=== PATIENT | male | born 1960 | race Caucasian/White ===

== ENCOUNTER 2021-02-18 13:29 | Inpatient (IN) | payer MEDICARE, SELFPAY ==
[2021-02-18] VITALS (8 sets, daily range): BP systolic 131–157; BP diastolic 79–95; PULSE 66–95; RESP 14–21; TEMP 36.9–37.2; O2SAT 95–100; BMI 27.3; BMI 24.0
--- NOTE | ~2021-02-18 | CT_ITS ---
EXAMINATION: CT brain wo con DATE: 02/18/2021 15:30 INDICATION: Seizure. Confusion. TECHNIQUE: Computed tomography (CT) of the head was performed without intravenous contrast. The mA wa s adjusted according to patient size. Iterative reconstruction technique was employed. Exam dose: 60 5.33 mGy-cm total exam DLP. COMPARISON: None FINDINGS: Examination is limited by motion. The patient was post-ictal and unable to hold still accor ding to the technologist. No intracranial mass lesion or hemorrhage, midline shift or mass effect eff ect is evident. There is focal chronic asymmetric encephalomalacia in the left temporal area subjacent to a healed de pressed fracture. There is a chronic small blowout fracture of the medial wall of the right orbit. There is nonspecific diminished attenuation cerebral white matter, likely due to chronic small vessel ischemic change. The mastoid air cells and included paranasal sinuses are unremarkable. IMPRESSION: No acute intracranial finding or significant change since 06/05/2013 Reviewed, dictated and finalized at [facility]. Reviewed, dictated and finalized at location A.
--- NOTE | ~2021-02-18 | MR_ITS ---
EXAMINATION: MR brain/brain stem wo con DATE: 02/20/2021 08:33 INDICATION: Altered mental status TECHNIQUE: Magnetic resonance imaging (MRI) of the brain and brainstem was performed without intraven ous contrast. Sequences included sagittal and axial T1-weighted SE, axial diffusion-weighted FS EPI A SSET, axial T2*-weighted GRE, axial T2-weighted FLAIR Propeller, and axial T2-weighted Propeller. Eufemia arent diffusion coefficient (ADC) maps were created. COMPARISON: 06/05/2013 FINDINGS: There are no areas of restricted diffusion to suggest acute infarction. There is no acute h emorrhage seen on the T2*, a hemosiderin sensitive sequence. The ventricles are normal in size. There are no extra-axial collections. A stable small area of encephalomalacia is noted in the left tempora l lobe adjacent to an old skull fracture. Flow voids are seen in the cerebral arteries on the T2-weig hted sequences consistent with their expected patency. Visualized orbits and soft tissues are unremar kable. IMPRESSION: 1. No acute findings. Reviewed, dictated and finalized at location A. IMPRESSION: 1. No acute findings.
--- NOTE | ~2021-02-18 | CT_ITS ---
EXAMINATION: CT chest high resolution wo co DATE: 02/20/2021 07:46 INDICATION: COPD. Patchy bilateral opacities reported on 02/18/2021 chest radiograph TECHNIQUE: Computed tomography (CT) of the chest was performed without intravenous contrast. Automate d exposure control and iterative reconstruction technique were employed. Exam dose: 217.89 mGy-cm to eve exam DLP. COMPARISON: 02/18/2021 portable AP chest / two-view chest FINDINGS: There is cardiomegaly. The ascending aorta measures up to 4.2 cm diameter, the mid aortic arch 3 cm diameter, the descending thoracic aorta 2.7 cm diameter. No pericardial or pleural effusion. Approximately 9 mm hypoattenuating lesion of the lower pole of the left lobe of the thyroid gland. No hilar or mediastinal mass lesion or lymphadenopathy. Minimal focal infiltrate, atelectasis or scarring in the medial right infrahilar area, right lower lo be The lungs are otherwise clear of infiltrate or consolidation. Mild to moderate likely chronic anterior wedge compression fracture deformity of T12, IMPRESSION: Minimal focal infiltrate, atelectasis or fibrotic change in the medial right infrahilar area, right lower lobe; otherwise no active pulmonary disease Cardiomegaly T12 compression fracture deformity Reviewed, dictated and finalized at [facility]. Reviewed, dictated and finalized at location A. IMPRESSION: Minimal focal infiltrate, atelectasis or fibrotic change in the me dial right infrahilar area, right lower lobe; otherwise no active pulmonary dis ease Cardiomegaly T12 compression fracture deformity
--- NOTE | ~2021-02-18 | XR_ITS ---
EXAMINATION: XR chest 1V portable INDICATION: Altered mental status TECHNIQUE: Portable AP chest at 1507 hours COMPARISON: 09/25/2012 FINDINGS: Cardiomegaly is noted. There are patchy bilateral opacities. No pleural effusion or pneumot horax is identified. IMPRESSION: 1. Cardiomegaly. 2. Patchy bilateral opacities which could reflect pneumonia/or pulmonary edema. Reviewed, dictated and finalized at location A.
--- NOTE | ~2021-02-18 | XR_ITS ---
EXAMINATION: XR chest 2V 02/21/2021 08:36 INDICATION: Pneumonia. Poor historian. PROCEDURE: PA and lateral views of the chest COMPARISON: Comparison to multiple prior studies sequentially, with oldest reviewed study dated 06/23. FINDINGS: The lungs are clear. The cardiomediastinal silhouette is within normal limits. There are no pleural effusions. There is no pneumothorax suspected. There is posterior basilar atelectasis. IMPRESSION: 1: Posterior basilar atelectasis on lateral view.. Reviewed, dictated and finalized at location A.
--- NOTE | 2021-02-18 14:50 | ECG_ITS ---
Measurements Intervals [place] Rate: 81 P: 52 [place]: 132 QRS: -34 QRSD: 101 T: 11 QT: 386 QTc: 450 Interpretive Statements SINUS RHYTHM POSSIBLE LEFT ATRIAL ENLARGEMENT LEFT AXIS DEVIATION DELAYED PRECORDIAL R/S TRANSITION BORDERLINE T WAVE ABNORMALITY- INFERIOR LEADS BASELINE ARTIFACT- I, II, III, AVR, AVL, BORDERLINE ECG Electronically Signed On 02-18-2021 15:54:32 CDT by Den Valdez D.O.
[2021-02-18] MEDS: SODIUM CHLORIDE 0.9% IV 1,000 ML 999 ML IV CONT (14:58)
--- NOTE | 2021-02-18 14:58 | ED.GENADULT ---
HPI - General Adult General Chief complaint: Seizure Stated complaint: SEIZURE ALL DAY Time Seen by Provider: 02/18/21 14:36 Source: RN notes reviewed Mode of arrival: ambulatory Limitations: altered mental status History of Present Illness HPI narrative: Patient 60 years old white male, history of seizure, lives alone, called his neighbor this morning at 7 AM who noticed that the patient is confused and talking nonsense, she knew right away that he had a seizure because he is ready he presents like that. She went see him, and he was so confused, restless, and she is suspected that he will get better in few minutes or 1 hour as usual. Then she left, then got another phone call from him at 1 PM today and noticed again that he is confused talking nonsense, went see him found his pills all over the countertop, still confused make no sense and decided to bring him to the emergency room. Currently patient is awake, disoriented x4. Patient is able to follow commands but unable to express his symptoms patient denies any tingling, numbness or focal weakness. History of seizure on Keppra, patient is shaking his head that he takes the medication all the time. He denies any fever, chills, nausea, vomiting, headache, chest pain, shortness of breath or abdominal pain. Related Data Allergies Allergy/AdvReac Type Severity Reaction Status Date / Time No Known Allergies Allergy Verified 02/18/21 13:59 Review of Systems Review of Systems: ROS unobtainable: Yes unobtainable due to medical condition and unobtainable due to mental status PMFSH Family History Family History Sibling Cerebrovascular accident, Onset Age: 30 Family history of kidney disease Family history of diabetes mellitus in first degree relative Mother Cerebrovascular accident, Onset Age: 50 Social History Social History Smoking status: Never smoker Alcohol intake: current Exam Narrative: General appearance: Well-developed, well-nourished Skin: Normal color Head: Normocephalic, nontraumatic Eyes: Clear conjunctiva ENT: Oropharynx normal, ears normal, nose normal Neck: Supple, nontender Chest and respiratory: Airway patent, no respiratory distress, no accessory muscle use Heart: Regular rate/rhythm Abdomen: Soft, nontender, no organomegaly, quiet bowel sounds Vascular: Normal peripheral pulses, normal capillary refill. Musculoskeletal: Normal range of motion, nontender back Neurologic: Alert, confused and disoriented x4 Course Course Emergency Course: Stable Vital Signs Vital signs: Vital Signs Temperature 37.2 C 02/18/21 13:33 Pulse Rate 95 02/18/21 13:33 Respiratory Rate 18 02/18/21 13:33 Blood Pressure 146/88 H 02/18/21 13:33 Pulse Oximetry 96 02/18/21 13:33 Temperature 37.2 C 02/18/21 13:33 Pulse Rate 86 02/18/21 15:53 Respiratory Rate 21 H 02/18/21 15:53 Blood Pressure 151/93 H 02/18/21 15:53 Pulse Oximetry 95 02/18/21 15:53 Medical Decision Making MDM Narrative Medical decision making narrative: Possible recurrent seizure, if the patient been confused since 7 AM until now , the underlying cause high likely is not seizure. CT head, labs, chest x-ray, UA, urine drug screen ordered. Further plan to follow Differential Diagnosis Differential Diagnosis: Seizure, CVA, drug abuse, major depression Vital Signs Vital Signs: Vital Signs Temperature 37.2 C 02/18/21 13:33 Pulse Rate 95 02/18/21 13:33 Respiratory Rate 18 02/18/21 13:33 Blood Pressure 146/88 H 02/18/21 13:33 Pulse Oximetry 96 02/18/21 13:33 Temperatur
[2021-02-18 15:03] LABS: Basophils Percent Auto 0.4 % (0.2-1.2); Hematocrit 40.5 % (42.0-52.0); Hemoglobin 14.3 g/dL (14.0-18.0); Immature Granulocyte Absolute 0.02 K/mm3 (0.00-0.031); Immature Granulocyte Percent A 0.4 % (0-0.5); Lymphocytes Absolute Auto 0.66 K/mm3 (0.9-3.2); Lymphocytes Percent Auto 13.5 % (18.3-44.2); Mean Corpuscular HGB Conc 35.3 g/dl (32-36); Mean Corpuscular Hemoglobin 35.3 pg (26-34); Mean Platelet Volume 10.3 fl (7.4-10.4); Monocytes Absolute Auto 0.5 K/mm3 (0.1-0.6); Neutrophils Absolute Auto 3.7 K/mm3 (1.3-6.7); Neutrophils Percent Auto 75.7 % (45.5-73.1); Platelet Count Result 194 k/mm3 (150-375); Red Blood Count 4.05 M/mm3 (4.6-6.20); White Blood Count 4.9 K/mm3 (4.5-10.0)
[2021-02-18 15:13] LABS: Alanine Aminotransferase 25 U/L (4-50); Albumin Level 4.2 g/dL (3.5-5.1); Alkaline Phosphatase 70 U/L (38-126); Anion Gap 10 mmol/L (8-16); Aspartate Amino Transferase 51 U/L (17-59); Bilirubin,Total 0.7 mg/dL (0.2-1.3); Blood Urea Nitrogen 11 mg/dL (9-20); Calcium 9.3 mg/dL (8.4-10.2); Carbon Dioxide 22 mmol/L (22-30); Chloride 97 mmol/L (98-107); Estimated CRCL calculation 79 ml/min; Estimated Glomerular Filt Rate > 60; Glucose 111 mg/dL (65-110); Potassium 3.5 mmol/L (3.4-5.0); Sodium 129 mmol/L (137-145)
[2021-02-18 15:18] LABS: Ethanol < 10 mg/dL (<10)
[2021-02-18 15:20] LABS: Add Urine Microscopic? YES; Amorphous Sediment Urine Few; Appearance Urine Clear (Clear); Bilirubin Urine Negative (Negative); Blood Urine Negative (Negative); Color Urine Yellow (Yellow); Glucose Urine UA Negative (Negative); Ketones Urine 1+ mg/dL (Negative); Leukocyte Esterase Ur Negative LEU/UL (Negative); Mucus Urine Few /lpf; Nitrate Urine Negative (Negative); Protein Urine 1+ mg/dL (Negative); Specific Grav Ur 1.029 (1.001-1.035); WBC Urine 0-3 /hpf
[2021-02-18 15:41] LABS: Amphetamine Screen Urine Negative (Negative); Barbiturate Screen Urine Negative (Negative); Benzodiazepines Screen Urine Negative (Negative); Cannabinoid Screen Urine Negative (Negative); Cocaine Screen Urine Negative (Negative); Methadone Screen Urine Negative (Negative); Opiate Screen Urine Negative (Negative); Phencyclidine Screen Urine Negative (Negative)
[2021-02-18] MEDS: ACETAMINOPHEN 500 MG TABLET 1000 MG PO (15:52)
[2021-02-18] MEDS: ONDANSETRON INJ 4 MG/2 ML VIAL IV PUSH (16:00)
--- NOTE | 2021-02-18 19:11 | PC.NURSE ---
Report received and care of pt assumed at this time.
--- NOTE | 2021-02-18 19:29 | PC.NURSE ---
Attempted to call report to floor. RN taking report. Will call back.
--- NOTE | 2021-02-18 20:13 | PM.IMHP ---
H&P: HPI History of Present Illness Date/Time: 02/18/21 20:13 Chief Complaint: ALTERED MENTAL STATUS Narrative: THIS IS A 60-YEAR-OLD MALE WITH PAST MEDICAL HISTORY SIGNIFICANT FOR EPILEPSY. PATIENT WAS BROUGHT TODAY BY HIS NEIGHBOR TO THE EMERGENCY ROOM DUE TO ALTERED MENTAL STATUS PATIENT HAS BEEN VERY CONFUSED AND DISORIENTED NOT MAKING SENSE NONSENSICAL NON LOGICAL ANSWERS AND BEHAVIOR ACCORDING TO NAVAL OR PATIENT HAS HAD THIS IN THE PAST AFTER HAVING A SEIZURE AND WAS ATTRIBUTED IN THESE BEHAVIOR TO THE SEIZURE HOWEVER AFTER FEW HOURS PASSED BY AND PATIENT WAS STILL ACTING THE SAME DECIDED TO BRING HIM TO THE EMERGENCY ROOM. UPON ARRIVAL TO THE EMERGENCY ROOM PATIENT WAS DISORIENTED. PRELIMINARY WORKUP WAS SIGNIFICANT FOR CHEST X-RAY WITH DIFFUSE INFILTRATES, A CT OF THE HEAD DID NOT SHOW ANY ACUTE ABNORMALITIES CHEMISTRY PANEL WAS SIGNIFICANT FOR A SODIUM OF 127. PATIENT HAS BEEN SWABBED FOR COVID 19 AND HAS BEEN PLACED IN OBSERVATION. Review of Systems Review of Systems: ROS unobtainable: Yes unobtainable due to medical condition and unobtainable due to mental status (DISORIENTED NONSENSICAL ANSWERS) [facility] Family History Family History Sibling Cerebrovascular accident, Onset Age: 30 Family history of kidney disease Family history of diabetes mellitus in first degree relative Mother Cerebrovascular accident, Onset Age: 50 Social History Social History Smoking packs per day: 1 Smoking cigarettes per day: 20.0 Years smoked: 40 Smoking pack-years: 40.00 Smoking status: Current every day smoker Tobacco type: cigarettes Alcohol intake: current Drinks per week: 15 Substance use: never Spiritual care concerns: No Meds Home Medications and Allergies Home Medications Medication Instructions Recorded Confirmed Type citalopram 20 mg tablet See Rx Instructions .ROUTE 12/17/20 Rx .COMPLEX #90 tablet lisinopril 10 mg tablet See Rx Instructions .ROUTE 12/17/20 Rx .COMPLEX #90 tablet levetiracetam 1,000 mg tablet See Rx Instructions .ROUTE 01/31/21 Rx .COMPLEX #360 tablet Allergies Allergy/AdvReac Type Severity Reaction Status Date / Time No Known Allergies Allergy Verified 02/18/21 13:59 Vital Signs Vital Signs - 24 hr 02/18/21 13:33 02/18/21 13:50 02/18/21 13:56 Temperature 99.0 F Pulse Rate 95 92 Respiratory Rate 18 Blood Pressure 146/88 H Pulse Oximetry 96 99 02/18/21 15:01 02/18/21 15:53 02/18/21 17:07 Temperature Pulse Rate 84 86 79 Respiratory Rate 20 21 H 14 Blood Pressure 157/95 H 151/93 H 133/79 Pulse Oximetry 99 95 97 02/18/21 18:14 Temperature Pulse Rate 75 Respiratory Rate 20 Blood Pressure 138/92 H Pulse Oximetry 100 Exam Narrative: PATIENT IS LAYING IN BED Const: General: cooperative, healthy appearing, comfortable, no acute distress, well developed, alert, awake and other (WELL-APPEARING) Nutritional Appearance: average body habitus Orientation/consciousness: confusion HENMT: Head: normal to inspection, normocephalic and atraumatic Ears: hearing grossly normal bilaterally General nose exam: Normal external nose present Face and sinus: normal facial exam Mouth: Yes Normal oral and palatal mucosa present Teeth and gingiva: dentition normal Eyes: General: appearance normal, both eyes and all related structures Alignment and Position: alignment normal Sclera: sclerae normal Pupils: Equal, round and reactive pupils present EOM: EOMs intact bilaterally Neck: Neck: normal visual inspection, full ROM, no lymphadenopathy, supple and no JVD Thyroid: thyroid normal Lymphatic: no lymphadenopathy noted Resp: Effort & Inspection: normal respiratory effort and able to speak in complete sentences Auscultation: clear to auscultation bilaterally, no crackles, no rales, no rhonchi and no wheezes Cardio: Jugular venous disten
--- NOTE | 2021-02-18 20:15 | ADMGEN ---
This patient, Ed Garland, was admitted to [facility] Surg Room 333-01. Patient/family oriented to hospital policies and general routines including ID bracelet, bed and alarms, visiting hours, pain management, procedures, bathroom and other care routines, personal items, smoking policy, room service/diet, and visiting hours. Information on how to activate the Rapid Response Team has been discussed. Patient/Family are encouraged to report perceived risks to care and to ask questions if they do not understand what they are told or what they should do.
[2021-02-18 22:52] LABS: Basophils Percent Auto 0.6 % (0.2-1.2); Eosinophils Percent Auto 0.4 % (0-4.4); Hematocrit 40.6 % (42.0-52.0); Hemoglobin 14.2 g/dL (14.0-18.0); Immature Granulocyte Absolute 0.02 K/mm3 (0.00-0.031); Immature Granulocyte Percent A 0.4 % (0-0.5); Lymphocytes Absolute Auto 1.19 K/mm3 (0.9-3.2); Lymphocytes Percent Auto 23.1 % (18.3-44.2); Mean Corpuscular Hemoglobin 34.9 pg (26-34); Mean Corpuscular Volume 99.8 fl (80-100); Mean Platelet Volume 9.7 fl (7.4-10.4); Monocytes Absolute Auto 0.7 K/mm3 (0.1-0.6); Neutrophils Absolute Auto 3.2 K/mm3 (1.3-6.7); Neutrophils Percent Auto 62.5 % (45.5-73.1); Platelet Count Result 191 k/mm3 (150-375); Red Blood Count 4.07 M/mm3 (4.6-6.20); Red Cell Distribution Width 12.9 % (11.5-14.5); White Blood Count 5.2 K/mm3 (4.5-10.0)
[2021-02-18 23:04] LABS: Anion Gap 6 mmol/L (8-16); Blood Urea Nitrogen 8 mg/dL (9-20); Calcium 8.9 mg/dL (8.4-10.2); Carbon Dioxide 23 mmol/L (22-30); Chloride 102 mmol/L (98-107); Estimated CRCL calculation 99 ml/min; Estimated Glomerular Filt Rate > 60; Glucose 109 mg/dL (65-110); Potassium 3.6 mmol/L (3.4-5.0); Sodium 131 mmol/L (137-145)
[2021-02-19] VITALS (8 sets, daily range): BP systolic 120–140; BP diastolic 73–88; PULSE 57–80; RESP 16–20; TEMP 36.3–37; O2SAT 97–100
[2021-02-19] MEDS: levETIRAcetam 500 MG TABLET 1000 MG BY MOUTH ×3 (02:08→20:22)
[2021-02-19 07:47] LABS: Anion Gap 7 mmol/L (8-16); Blood Urea Nitrogen 6 mg/dL (9-20); Calcium 8.7 mg/dL (8.4-10.2); Carbon Dioxide 23 mmol/L (22-30); Chloride 104 mmol/L (98-107); Estimated CRCL calculation 113 ml/min; Estimated Glomerular Filt Rate > 60; Glucose 98 mg/dL (65-110); Potassium 3.6 mmol/L (3.4-5.0); Sodium 134 mmol/L (137-145)
[2021-02-19] MEDS: CITALOPRAM HYDROBROMIDE 20 MG TABLET BY MOUTH (08:25)
[2021-02-19] MEDS: ASPIRIN 81 MG CHEWABLE TABLET PO (08:25)
[2021-02-19] MEDS: ENOXAPARIN 40 MG/0.4 ML SYRINGE SUB-Q (08:25)
--- NOTE | 2021-02-19 09:34 | PM.IMPN ---
Progress Note: A&P Assessment and Plan (1) Acute alteration in mental status: Code(s): R41.82 - Altered mental status, unspecified Status: Acute Assessment and Plan: ADMIT TO REGULAR MEDICAL FLOOR SUPPORTIVE CARE MRI OF THE BRAIN IN [facility] Q.4 UNCLEAR ETIOLOGY CONTINUE TO MONITOR (2) Pneumonia: Qualifiers: Laterality: bilateral Lung location: lower lobe of lung Pneumonia type: due to unspecified organism Qualified Code(s): J18.9 - Pneumonia, unspecified organism Code(s): J18.9 - Pneumonia, unspecified organism Status: Acute Assessment and Plan: STARTED ON ROCEPHIN AND ZITHROMAX AWAIT CULTURES (3) History of seizure: Code(s): Z87.898 - Personal history of other specified conditions Status: Acute Assessment and Plan: CONTINUE LEVETIRACETAM SEIZURES PRECAUTION (4) Hyponatremia: Code(s): E87.1 - Hypo-osmolality and hyponatremia Status: Acute Assessment and Plan: PATIENT RECEIVED IV FLUIDS 0.9 NORMAL SALINE IMPROVED SODIUM FROM 129-131 CONTINUE TO MONITOR Subjective Date/time seen: 02/19/21 09:34 Patient was seen during the morning rounds today. Mild shortness of breath no chest pain. No abdominal pain, no nausea, no vomiting. Mood stable Review of Systems Review of Systems: ROS unobtainable: Yes unobtainable due to medical condition and unobtainable due to mental status (DISORIENTED NONSENSICAL ANSWERS) Neurologic: Reports confusion Psychiatric: Psychiatric: Reports confusion Exam Narrative: PATIENT IS LAYING IN BED Const: General: cooperative, healthy appearing, comfortable, no acute distress, well developed, alert, awake, confusion and other (WELL-APPEARING) Nutritional Appearance: average body habitus Orientation/consciousness: patient oriented x3 and confusion HENMT: Head: normal to inspection, normocephalic and atraumatic Ears: hearing grossly normal bilaterally General nose exam: Normal external nose present Face and sinus: normal facial exam Mouth: Yes Normal oral and palatal mucosa present Teeth and gingiva: dentition normal Eyes: General: appearance normal, both eyes and all related structures Alignment and Position: alignment normal Sclera: sclerae normal Pupils: Equal, round and reactive pupils present EOM: EOMs intact bilaterally Neck: Neck: normal visual inspection, full ROM, no lymphadenopathy, supple and no JVD Thyroid: thyroid normal Lymphatic: no lymphadenopathy noted Resp: Effort & Inspection: normal respiratory effort and able to speak in complete sentences Auscultation: clear to auscultation bilaterally, no crackles, no rales, no rhonchi and no wheezes Cardio: Jugular venous distension: no JVD Rate: regular rate Rhythm: regular rhythm Heart sounds: S1 normal heart sound present and S2 normal heart sound present GI: Inspection: normal to inspection and non-distended : General: Yes deferred Skin: General skin exam: normal color Rashes: no rashes Wounds: no wounds Neuro: General: patient oriented x3, CN's II-XI intact bilaterally and confusion Cranial nerves: Yes CN's II-XII intact bilaterally and Yes Equal, round and reactive pupils present Cognition (Neuro): abnormal cognition (DISORIENTED) Speech: normal speech Gait exam (Neuro): Normal gait present Motor exam (neuro): 5/5 motor strength present throughout Extrem: General: normal to inspection, full ROM, no joint enlargement and no pedal edema Objective Data Vital Signs Vital Signs: Vital Signs - 24 hr 02/18/21 13:33 02/18/21 13:50 02/18/21 13:56 Temperature 37.2 C Pulse Rate 95 92 Respiratory Rate 18 Blood Pressure 146/88 H Pulse Oximetry 96 99 02/18/21 15:01 02/18/21 15:53 02/18/21 17:07 Temperature Pulse Rate 84 86 79 Respiratory Rate 20 21 H 14 Blood Pressure 157/95 H 151/93 H 133/79 Pulse Oximetry 99 95 97 02/18/21 18:14 02/18/21 20:10 02/19/21 00:00 Temperature 36.9 C 36.9 C
--- NOTE | 2021-02-19 14:02 | WPDNEURCNPN ---
Assessment and Plan Additional Plan acute changes in the mental status with history of seizure disorder in the past, levetiracetam is being continued as such along with seizure precautions and further investigations are being carried out Consult date: 02/19/21 Time Seen: 01:45 HPI: Ed Garland is a 60 year old male admitted to the hospital for complaint of change in the mental status in addition to history of epilepsy in the past. Patient was brought to the hospital by his neighbor with complaints of change in the mental status subsequent to having had a seizure in the past his behavior has been attributed to the seizure and confusion related to the seizure in the emergency room he was reportedly disoriented, x-ray chest revealed diffuse infiltration, CT scan of the head revealed no evidence of bleed, and basic metabolic panel revealed hyponatremia with sodium of 127 he was swabbed for COVID-19 was admitted for observation in the past patient has ongoing history of smoking 1 pack per day with 40 years of smoke no substance abuse and 15 drinks per week, medication particularly included Cytotec prime 20 mg daily along with the levetiracetam 1000 mg twice a day and lisinopril 10 mg daily x-ray chest also documented cardiomegaly with patchy bilateral opacities reflecting pneumonia versus pulmonary edema Review of Systems Review of Systems: All systems reviewed & are unremarkable except as noted in HPI and below PMFSH Family History Family History Sibling Cerebrovascular accident, Onset Age: 30 Family history of kidney disease Family history of diabetes mellitus in first degree relative Mother Cerebrovascular accident, Onset Age: 50 Social History Social History Smoking packs per day: 1 Smoking cigarettes per day: 20.0 Years smoked: 40 Smoking pack-years: 40.00 Smoking status: Current every day smoker Tobacco type: cigarettes Alcohol intake: current Drinks per week: 15 Substance use: never Spiritual care concerns: No Meds Home Medications and Allergies Home Medications Medication Instructions Recorded Confirmed Type citalopram 20 mg tablet See Rx Instructions .ROUTE 12/17/20 02/19/21 Rx .COMPLEX #90 tablet levetiracetam 1,000 mg tablet See Rx Instructions .ROUTE 01/31/21 02/19/21 Rx .COMPLEX #360 tablet lisinopril 10 mg PO DAILY 02/19/21 02/19/21 History Allergies Allergy/AdvReac Type Severity Reaction Status Date / Time No Known Allergies Allergy Verified 02/18/21 13:59 Vital Signs Vital Signs - 24 hr 02/18/21 15:01 02/18/21 15:53 02/18/21 17:07 Temperature Pulse Rate 84 86 79 Respiratory Rate 20 21 H 14 Blood Pressure 157/95 H 151/93 H 133/79 Pulse Oximetry 99 95 97 02/18/21 18:14 02/18/21 20:10 02/19/21 00:00 Temperature 36.9 C 36.9 C Pulse Rate 75 66 80 Respiratory Rate 20 18 18 Blood Pressure 138/92 H 131/88 130/86 Pulse Oximetry 100 99 99 02/19/21 03:44 02/19/21 03:47 02/19/21 08:00 Temperature 37.0 C 37.0 C 36.4 C Pulse Rate 63 63 70 Respiratory Rate 20 20 16 Blood Pressure 134/81 134/81 135/84 Pulse Oximetry 99 100 02/19/21 12:00 Temperature 36.6 C Pulse Rate 71 Respiratory Rate 16 Blood Pressure 140/88 Pulse Oximetry 97 Exam Const: General: cooperative, comfortable and no acute distress Nutritional Appearance: average body habitus Orientation/consciousness: oriented to person Limitations: behavioral limitations HENMT: Head: No palpable skull fracture present Ears: hearing grossly normal bilaterally General nose exam: Normal external nose present Face and sinus: normal facial exam Mouth: Yes Normal oral and palatal mucosa present Eyes: General: appearance normal, both eyes and all related structures Visual Cfofey: normal visual coffey by confrontation Alignment and Position: alignment normal Periorbital: periorbital findings laurie
[2021-02-19 18:08] LABS: SARS-CoV-2 RNA PCR Negative
[2021-02-20] VITALS (9 sets, daily range): BP systolic 128–145; BP diastolic 76–88; PULSE 51–60; RESP 16–18; TEMP 36.1–36.9; O2SAT 100
[2021-02-20] MEDS: ASPIRIN 81 MG CHEWABLE TABLET PO (08:44)
[2021-02-20] MEDS: levETIRAcetam 500 MG TABLET 1000 MG BY MOUTH ×2 (08:44→20:21)
[2021-02-20] MEDS: CITALOPRAM HYDROBROMIDE 20 MG TABLET BY MOUTH (08:45)
[2021-02-20] MEDS: ENOXAPARIN 40 MG/0.4 ML SYRINGE SUB-Q (08:50)
--- NOTE | 2021-02-20 11:32 | PM.IMPN ---
Progress Note: A&P Assessment and Plan (1) Acute alteration in mental status: Code(s): R41.82 - Altered mental status, unspecified Status: Acute Assessment and Plan: ADMIT TO REGULAR MEDICAL FLOOR SUPPORTIVE CARE MRI OF THE BRAIN IN [facility] Q.4 UNCLEAR ETIOLOGY CONTINUE TO MONITOR (2) Pneumonia: Qualifiers: Laterality: bilateral Lung location: lower lobe of lung Pneumonia type: due to unspecified organism Qualified Code(s): J18.9 - Pneumonia, unspecified organism Code(s): J18.9 - Pneumonia, unspecified organism Status: Acute Assessment and Plan: STARTED ON ROCEPHIN AND ZITHROMAX AWAIT CULTURES (3) History of seizure: Code(s): Z87.898 - Personal history of other specified conditions Status: Acute Assessment and Plan: CONTINUE LEVETIRACETAM SEIZURES PRECAUTION (4) Hyponatremia: Code(s): E87.1 - Hypo-osmolality and hyponatremia Status: Acute Assessment and Plan: PATIENT RECEIVED IV FLUIDS 0.9 NORMAL SALINE IMPROVED SODIUM CONTINUE TO MONITOR Neurology consult noted. Will start physical therapy. [employer] worker for placement. Subjective Date/time seen: 02/20/21 11:32 Patient was seen during the morning rounds today. Patient is lying comfortably in the bed. Patient is still oriented to only person. Not in any acute distress. No shortness of breath or chest pain. No abdominal pain, nausea, no vomiting. Mood stable. Review of Systems Review of Systems: ROS unobtainable: Yes unobtainable due to medical condition and unobtainable due to mental status (DISORIENTED NONSENSICAL ANSWERS) Neurologic: Reports confusion Psychiatric: Psychiatric: Reports confusion Exam Narrative: PATIENT IS LAYING IN BED Const: General: cooperative, healthy appearing, comfortable, no acute distress, well developed, alert, awake, confusion and other (WELL-APPEARING) Nutritional Appearance: average body habitus Orientation/consciousness: patient oriented x3 and confusion HENMT: Head: normal to inspection, normocephalic and atraumatic Ears: hearing grossly normal bilaterally General nose exam: Normal external nose present Face and sinus: normal facial exam Mouth: Yes Normal oral and palatal mucosa present Teeth and gingiva: dentition normal Eyes: General: appearance normal, both eyes and all related structures Alignment and Position: alignment normal Sclera: sclerae normal Pupils: Equal, round and reactive pupils present EOM: EOMs intact bilaterally Neck: Neck: normal visual inspection, full ROM, no lymphadenopathy, supple and no JVD Thyroid: thyroid normal Lymphatic: no lymphadenopathy noted Resp: Effort & Inspection: normal respiratory effort and able to speak in complete sentences Auscultation: clear to auscultation bilaterally, no crackles, no rales, no rhonchi and no wheezes Cardio: Jugular venous distension: no JVD Rate: regular rate Rhythm: regular rhythm Heart sounds: S1 normal heart sound present and S2 normal heart sound present GI: Inspection: normal to inspection and non-distended : General: Yes deferred Skin: General skin exam: normal color Rashes: no rashes Wounds: no wounds Neuro: General: patient oriented x3, CN's II-XI intact bilaterally and confusion Cranial nerves: Yes CN's II-XII intact bilaterally and Yes Equal, round and reactive pupils present Cognition (Neuro): abnormal cognition (DISORIENTED) Speech: normal speech Gait exam (Neuro): Normal gait present Motor exam (neuro): 5/5 motor strength present throughout Extrem: General: normal to inspection, full ROM, no joint enlargement and no pedal edema Objective Data Vital Signs Vital Signs: Vital Signs - 24 hr 02/19/21 12:00 02/19/21 15:54 02/19/21 16:00 Temperature 36.6 C 36.3 C L Pulse Rate 65 59 L 57 L Respiratory Rate 16 16 Blood Pressure 140/88 130/79 Pulse Oximetry 97 100 02/19/21 20:00 02/20/21 00:00 02/20/21 04:00
[2021-02-21] VITALS (10 sets, daily range): BP systolic 124–144; BP diastolic 77–90; PULSE 48–67; RESP 18; TEMP 36.3–36.5; O2SAT 98–100
[2021-02-21 09:02] LABS: Anion Gap 5 mmol/L (8-16); Blood Urea Nitrogen 11 mg/dL (9-20); Calcium 9.3 mg/dL (8.4-10.2); Carbon Dioxide 29 mmol/L (22-30); Chloride 101 mmol/L (98-107); Estimated CRCL calculation 99 ml/min; Estimated Glomerular Filt Rate > 60; Glucose 94 mg/dL (65-110); Potassium 3.8 mmol/L (3.4-5.0); Sodium 135 mmol/L (137-145)
[2021-02-21] MEDS: lisinopriL 10 MG TABLET PO (09:02)
[2021-02-21] MEDS: CITALOPRAM HYDROBROMIDE 20 MG TABLET BY MOUTH (09:02)
[2021-02-21] MEDS: ENOXAPARIN 40 MG/0.4 ML SYRINGE SUB-Q (09:02)
[2021-02-21] MEDS: levETIRAcetam 500 MG TABLET 2000 MG BY MOUTH ×2 (09:02→20:10)
[2021-02-21] MEDS: ASPIRIN 81 MG CHEWABLE TABLET PO (09:02)
--- NOTE | 2021-02-21 16:14 | PCPTNOTE ---
On 02/21/21, the student, Praveen SCRUGGS, provided care and completed [facility] documentation on this patient. I have reviewed the student's documentation and agree with the findings.
--- NOTE | 2021-02-21 16:59 | PM.IMPN ---
Progress Note: A&P Assessment and Plan (1) Acute alteration in mental status: Code(s): R41.82 - Altered mental status, unspecified Status: Acute Assessment and Plan: Patient brought to the ED with complaints of altered mental status. He has nonsensical speech. CT the brain showed no acute intracranial findings or changes since 2013. Brain MRI also showing no acute findings. 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 Daughter states this is not uncommon after a seizure for patient to have speech issues that just started a few months ago. Suspect etiology of the altered mental status is seizure. Daughter is concerned that there is no EEG performed since he has had these new changes. Will check EEG. Advance Keppra to home dose. Continue to follow closely. Seizure precautions. (2) Pneumonia: Qualifiers: Laterality: bilateral Lung location: lower lobe of lung Pneumonia type: due to unspecified organism Qualified Code(s): J18.9 - Pneumonia, unspecified organism Code(s): J18.9 - Pneumonia, unspecified organism Status: Acute Assessment and Plan: CXR showing patchy bilateral opacities which could reflect pneumonia/or pulmonary edema. He was started on Rocephin and azithromycin. CT chest performed showing minimal focal infiltrate, atelectasis or fibrotic change in the medial right infrahilar area, right lower lobe; otherwise no active pulmonary disease. Blood cultures no growth today. Repeat chest x-ray showing posterior basilar atelectasis. Doubt pneumonia. Will stop antibiotics. (3) History of seizure: Code(s): Z87.898 - Personal history of other specified conditions Status: Acute Assessment and Plan: Patient remains on Keppra. We did increase his dose to the home dose of 2000 mg Q 12. Continue seizure precautions. Will check EEG. (4) Hyponatremia: Code(s): E87.1 - Hypo-osmolality and hyponatremia Status: Acute Assessment and Plan: Sodium 129 admission but has climbed daily to 135 and a slow appropriate increase. Continue to follow (5) DVT prophylaxis: Code(s): Z29.9 - Encounter for prophylactic measures, unspecified Status: Acute Assessment and Plan: Lovenox Subjective Date/time seen: 02/21/21 16:59 Interval history: 60yo male with hx of seizures here for altered mental status. Assuming care. Chart reviewed. Patient has nonsensical speech and thus unable to provide history. I spoke with his daughter who provided the following history. She states patient had a traumatic brain injury but had good recovery. More recently over the past 4 months, patient has had seizures that have worsened. He has seizures followed by multiple days of nonsensical speech. This is not associated with paralysis. They have been increasing his Keppra and now he takes 2000 mg twice a day. According to ED note, patient may not be taking his Keppra as prescribed. Review of Systems Review of Systems: ROS unobtainable: Yes unobtainable due to mental status Exam Narrative: AF 97.7 126/77 58 16 98% ra Gen - NARD Chest - CTA bilaterally, nml RR CV - RRR S1/S2. Telemetry showing no significant dysrhythmias. Abd - Soft, NT/ND, Positive BS Ext - No pedal edema Neuro -patient alert but nonsensical speech. No focal weakness. Walking the halls with therapy. Psych -pleasant and cooperative Skin - Warm and dry Objective Data Vital Signs Vital Signs: Vital Signs - 24 hr 02/20/21 20:00 02/20/21 22:00 02/21/21 00:00 Temperature 97.8 F Pulse Rate 53 L 54 L 53 L Respiratory Rate 18 18 Blood Pressure 145/88 H Pulse Oximetry 100 100 02/21/21 04:00 02/21/21 06:00 02/21/21 08:00 Temperature 97.7 F Pulse Rate 48 L 64 58 L Respiratory Rate 18 Blood Pressure 124/85 Pulse Oximetry 100 02/21/21 12:00 02/21/21 14:00 Temper
[2021-02-22] VITALS (8 sets, daily range): BP systolic 123–134; BP diastolic 74–92; PULSE 47–62; RESP 16–20; TEMP 35.7–36.4; O2SAT 98–99
[2021-02-22] MEDS: lisinopriL 10 MG TABLET PO (08:23)
[2021-02-22] MEDS: ASPIRIN 81 MG CHEWABLE TABLET PO (08:23)
[2021-02-22] MEDS: levETIRAcetam 500 MG TABLET 2000 MG BY MOUTH ×2 (08:24→20:10)
[2021-02-22] MEDS: ENOXAPARIN 40 MG/0.4 ML SYRINGE SUB-Q (08:24)
[2021-02-22] MEDS: CITALOPRAM HYDROBROMIDE 20 MG TABLET BY MOUTH (08:24)
--- NOTE | 2021-02-22 15:05 | PM.IMPN ---
Progress Note: A&P Assessment and Plan (1) Acute alteration in mental status: Code(s): R41.82 - Altered mental status, unspecified Status: Acute Assessment and Plan: Patient brought to the ED with complaints of altered mental status. He has nonsensical speech. CT the brain showed no acute intracranial findings or changes since 2013. Brain MRI also showing no acute findings. 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 Daughter states this is not uncommon after a seizure for patient to have speech issues that just started a few months ago. Suspect etiology of the altered mental status is seizure. Daughter is concerned that there is no EEG performed since he has had these new changes. EEG done today awaiting report. Advance Keppra to home dose. Continue to follow closely. Seizure precautions. (2) Pneumonia: Qualifiers: Laterality: bilateral Lung location: lower lobe of lung Pneumonia type: due to unspecified organism Qualified Code(s): J18.9 - Pneumonia, unspecified organism Code(s): J18.9 - Pneumonia, unspecified organism Status: Acute Assessment and Plan: CXR showing patchy bilateral opacities which could reflect pneumonia/or pulmonary edema. He was started on Rocephin and azithromycin. CT chest performed showing minimal focal infiltrate, atelectasis or fibrotic change in the medial right infrahilar area, right lower lobe; otherwise no active pulmonary disease. Blood cultures no growth today. Repeat chest x-ray showing posterior basilar atelectasis. Doubt pneumonia. Will stop antibiotics. (3) History of seizure: Code(s): Z87.898 - Personal history of other specified conditions Status: Acute Assessment and Plan: Patient remains on Keppra. We did increase his dose to the home dose of 2000 mg Q 12. Continue seizure precautions. Will check EEG. Eeg report awaited (4) Hyponatremia: Code(s): E87.1 - Hypo-osmolality and hyponatremia Status: Acute Assessment and Plan: Sodium 129 admission but has climbed daily to 135 and a slow appropriate increase. Continue to follow (5) DVT prophylaxis: Code(s): Z29.9 - Encounter for prophylactic measures, unspecified Status: Acute Assessment and Plan: Lovenox Subjective Date/time seen: 02/22/21 15:05 Interval history: 60yo male with hx of seizures here for altered mental status. No overnight events. Speech is more sensible today compared to yesterday per nursing staff. 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 Review of Systems Review of Systems: All systems reviewed & are unremarkable except as noted in HPI and below (HPI) Neurologic: Reports confusion Exam Narrative: Gen - NARD Chest - CTA bilaterally, nml RR CV - RRR S1/S2. Telemetry showing no significant dysrhythmias. Abd - Soft, NT/ND, Positive BS Ext - No pedal edema Neuro -patient alert and awake oriented to time place and person not sure if it is related to my accent had difficulty understanding me however was able to answer all questions appropriately to the nursing staff. It felt as if he confabulates. No focal weakness. Psych -pleasant and cooperative Skin - Warm and dry Objective Data Vital Signs Vital Signs: Vital Signs - 24 hr 02/21/21 16:00 02/21/21 19:49 02/21/21 20:00 Temperature Pulse Rate 53 L 53 L 67 Respiratory Rate 18 Blood Pressure Pulse Oximetry 98 02/21/21 21:52 02/22/21 00:00 02/22/21 04:00 Temperature 97.4 F L Pulse Rate 56 L 47 L 50 L Respiratory Rate 18 Blood Pressure 144/90 H Pulse Oximetry 100 02/22/21 06:00 02/22/21 08:00 02/22/21 09:40 Temperature 97.6 F 96.7 F L Pulse Rate 62 60 Respiratory Rate 18 16 Blood Pressure 123/74 131/92 H Pulse Oximetry 98 99 98 02/22/21 14:20 Temperature 96.3 F L Pulse Rate 58 L
--- NOTE | 2021-02-22 15:35 | PC.NURSE ---
On 02/22/21, the student, [Velma Castro ], provided care and completed [facility] documentation on this patient. I have reviewed the student's documentation and agree with the findings.
[2021-02-23 06:00] VITALS: BP 128/55; PULSE 61; RESP 16; TEMP 36.3; O2SAT 100
[2021-02-23 07:09] LABS: Basophils Absolute Auto 0.1 K/mm3 (0.0-0.1); Basophils Percent Auto 1.9 % (0.2-1.2); Eosinophils Absolute Auto 0.2 K/mm3 (0-0.3); Eosinophils Percent Auto 4.1 % (0-4.4); Hematocrit 45.4 % (42.0-52.0); Hemoglobin 15.8 g/dL (14.0-18.0); Immature Granulocyte Absolute 0.01 K/mm3 (0.00-0.031); Immature Granulocyte Percent A 0.2 % (0-0.5); Lymphocytes Absolute Auto 1.53 K/mm3 (0.9-3.2); Lymphocytes Percent Auto 36.7 % (18.3-44.2); Mean Corpuscular HGB Conc 34.8 g/dl (32-36); Mean Corpuscular Hemoglobin 34.5 pg (26-34); Mean Corpuscular Volume 99.1 fl (80-100); Mean Platelet Volume 10.1 fl (7.4-10.4); Monocytes Absolute Auto 0.6 K/mm3 (0.1-0.6); Monocytes Percent Auto 13.7 % (2.6-8.5); Neutrophils Absolute Auto 1.8 K/mm3 (1.3-6.7); Neutrophils Percent Auto 43.4 % (45.5-73.1); Platelet Count Result 272 k/mm3 (150-375); Red Blood Count 4.58 M/mm3 (4.6-6.20); Red Cell Distribution Width 12.2 % (11.5-14.5); White Blood Count 4.2 K/mm3 (4.5-10.0)
[2021-02-23 07:10] LABS: Alanine Aminotransferase 27 U/L (4-50); Albumin Level 4.1 g/dL (3.5-5.1); Alkaline Phosphatase 62 U/L (38-126); Anion Gap 4 mmol/L (8-16); Aspartate Amino Transferase 38 U/L (17-59); Bilirubin,Total 1.1 mg/dL (0.2-1.3); Blood Urea Nitrogen 13 mg/dL (9-20); Calcium 9.4 mg/dL (8.4-10.2); Carbon Dioxide 30 mmol/L (22-30); Chloride 102 mmol/L (98-107); Estimated CRCL calculation 87 ml/min; Estimated Glomerular Filt Rate > 60; Glucose 91 mg/dL (65-110); Potassium 4.3 mmol/L (3.4-5.0); Sodium 136 mmol/L (137-145)
--- NOTE | 2021-02-23 08:55 | WPDNEUROLOGY ---
Neurology EEG Report General Information Date of Study: 02/22/21 TEST eeg DIAGNOSIS seizures CONDITION OF RECORDING awake drowsy and sleep EEG NUMBER [id number] CLINICAL HISTORY patient reported, he has a history of seizures for the last couple of years but are usually well controlled.had An episode yesterday where he could not talk and was acting unusual. EEG DESCRIPTION Basic resting occipital frequency consists of moderate amount of poorly organized low voltage to medium voltage 8 to 10 hertz per 2nd alpha admixed with low-voltage 15 to 21 hertz per 2nd beta. During drowsiness low-voltage beta activity seen diffusely. Bilateral sleep activity seen during sleep. Throughout the tracing during wakefulness drowsiness asymmetrical sharp wave transients seen over the left hemispheric linkages. Hyperventilation not done ,photic stimulation not done. Paroxysmal, focal and lateralizing. IMPRESSION Abnormal record due to the presence of left hemispheric sharp wave transients throughout the tracing during wakefulness drowsiness and sleep. These abnormalities are suggestive of underlying seizure disorder with left hemispheric focus. clinical correlation recommended.
[2021-02-23] MEDS: ASPIRIN 81 MG CHEWABLE TABLET PO (09:31)
[2021-02-23] MEDS: CITALOPRAM HYDROBROMIDE 20 MG TABLET BY MOUTH (09:31)
[2021-02-23] MEDS: lisinopriL 10 MG TABLET PO (09:31)
[2021-02-23] MEDS: ENOXAPARIN 40 MG/0.4 ML SYRINGE SUB-Q (09:31)
[2021-02-23] MEDS: levETIRAcetam 500 MG TABLET 2000 MG BY MOUTH (09:31)
--- NOTE | 2021-02-23 12:36 | PM.DS ---
DS: Admitting Diagnosis Discharge Date 02/23/2021 Admitting Diagnosis ALTERED MENTAL STATUS DS: Discharge Diagnosis Discharge Diagnosis (1) Acute alteration in mental status: Code(s): R41.82 - Altered mental status, unspecified Status: Acute Assessment and Plan: Patient brought to the ED with complaints of altered mental status. He has nonsensical speech. CT the brain showed no acute intracranial findings or changes since 2013. Brain MRI also showing no acute findings. 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 Daughter states this is not uncommon after a seizure for patient to have speech issues that just started a few months ago. Suspect etiology of the altered mental status is seizure. Pt had EEG in the hospital. Pt discharged on oral Keppra pt to follow with neurology, advised not to drive until his visit. (2) Pneumonia: Qualifiers: Laterality: bilateral Lung location: lower lobe of lung Pneumonia type: due to unspecified organism Qualified Code(s): J18.9 - Pneumonia, unspecified organism Code(s): J18.9 - Pneumonia, unspecified organism Status: Acute Assessment and Plan: CXR showing patchy bilateral opacities which could reflect pneumonia/or pulmonary edema. He was started on Rocephin and azithromycin. CT chest performed showing minimal focal infiltrate, atelectasis or fibrotic change in the medial right infrahilar area, right lower lobe; otherwise no active pulmonary disease. Blood cultures no growth today. Pts abx were stopped. (3) History of seizure: Code(s): Z87.898 - Personal history of other specified conditions Status: Acute Assessment and Plan: Patient remains on Keppra. We did increase his dose to the home dose of 2000 mg Q 12. Dc today, daughter will watch him for next few days. (4) Hyponatremia: Code(s): E87.1 - Hypo-osmolality and hyponatremia Status: Acute Assessment and Plan: Sodium 129 admission but has climbed daily to 136 ok for dc (5) DVT prophylaxis: Code(s): Z29.9 - Encounter for prophylactic measures, unspecified Status: Acute Assessment and Plan: Lovenox in the hospital DS: Summary Hospital Course Hospital Course: Pt admitted with AMS and pneumonia. Pt was treated with IV abx and was better from lungs point of view. Pt had EEG and was seen by neurology lillian advanced, pt can be DC. 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 Time Spent with Patient Time attestation: Total time spent providing and/or coordinating discharge services:40 minutes on day of dischrage Exam Narrative: Gen - middle aged man Chest - CTA bilaterally, nml RR CV - RRR S1/S2. Telemetry showing no significant dysrhythmias. Abd - Soft, NT/ND, Positive BS Ext - No pedal edema Neuro -patient alert and awake oriented to time place and person not sure not answering questions appropriately. Disoriented x2 Psych -pleasant and cooperative Skin - Warm and dry DS: Data Data Completed and Pending Labs on day of discharge: Labs from last 24 hours 02/23/21 02/23/21 06:42 06:42 WBC 4.2 L RBC 4.58 L Hgb 15.8 Hct 45.4 MCV 99.1 MCH 34.5 H MCHC 34.8 RDW 12.2 Plt Count 272 MPV 10.1 Immature Gran % (Auto) 0.2 Neut % (Auto) 43.4 L Lymph % (Auto) 36.7 [place] % (Auto) 13.7 H Eos % (Auto) 4.1 Baso % (Auto) 1.9 H Lymph # (Auto) 1.53 [place] # (Auto) 0.6 Eos # (Auto) 0.2 Baso # (Auto) 0.1 Abs Immat Gran (auto) 0.01 Absolute Neuts (auto) 1.8 Absolute Nucleated RBC 0.0 Nucleated RBC % 0.0 Sodium 136 L Potassium 4.3 Chloride 102 Carbon Dioxide 30 Anion Gap 4 L BUN 13 Creatinine 0.80 Estim Creat Clear Calc 87 Estimated GFR > 60 Glucose 91 Calcium 9.4 Total Bilirubin 1.1 AST 38 ALT 27 Alkaline Phosphatase 62 Total Pr
== END 2021-02-23 12:50 | disposition home or self-care (01) | DRG 101 ==
LOC: ANHED 16:31 → ANH3MEDSUR 02-21 01:07
PROVIDERS: Internal Medicine; Admitting Provider Family Medicine; Emergency Provider Emergency Medicine; Visit Provider Family Medicine
DX: G40.909 Epilepsy, unspecified, not intractable, without status epilepticus (principal); E87.1 Hypo-osmolality and hyponatremia; F17.210 Nicotine dependence, cigarettes, uncomplicated; Z87.898 Personal history of other specified conditions; Z20.822 Contact with and (suspected) exposure to COVID-19; Z87.820 Personal history of traumatic brain injury; G93.89 Other specified disorders of brain
CPT/HCPCS: 36415; 70450; 70551; 71045; 71046; 71250; 80048; 80053; 80307; 81001; 85025; 87040; 93005; 95816; 96361; 96374; 97161; 99285; A9270; C9803; J0456; J0696; J1650; J2405; J7030; U0003; U0005

== ENCOUNTER 2021-03-14 14:15 | Emergency (ER) | payer MEDICARE, SELFPAY ==
[2021-03-14 14:28] VITALS: BP 135/95; PULSE 74; RESP 18; TEMP 36.4; O2SAT 98
--- NOTE | 2021-03-14 14:28 | ECG_ITS ---
Measurements Intervals [place] Rate: 68 P: 38 IA: 159 QRS: -38 QRSD: 106 T: 17 QT: 414 QTc: 441 Interpretive Statements SINUS RHYTHM LEFT AXIS DEVIATION BORDERLINE R WAVE PROGRESSION, ANTERIOR LEADS BASELINE ARTIFACT- I, II, AVR, V4-V5 BORDERLINE ECG Electronically Signed On 03-14-2021 14:46:34 CDT by Dne Valdez D.O.
[2021-03-14 14:51] LABS: Basophils Absolute Auto 0.1 K/mm3 (0.0-0.1); Basophils Percent Auto 1.2 % (0.2-1.2); Eosinophils Absolute Auto 0.2 K/mm3 (0-0.3); Eosinophils Percent Auto 3.5 % (0-4.4); Hematocrit 43.5 % (42.0-52.0); Immature Granulocyte Absolute 0.01 K/mm3 (0.00-0.031); Immature Granulocyte Percent A 0.2 % (0-0.5); Lymphocytes Absolute Auto 1.78 K/mm3 (0.9-3.2); Lymphocytes Percent Auto 41.5 % (18.3-44.2); Mean Corpuscular HGB Conc 34.5 g/dl (32-36); Mean Corpuscular Volume 101.4 fl (80-100); Mean Platelet Volume 9.9 fl (7.4-10.4); Monocytes Absolute Auto 0.4 K/mm3 (0.1-0.6); Monocytes Percent Auto 9.8 % (2.6-8.5); Neutrophils Absolute Auto 1.9 K/mm3 (1.3-6.7); Neutrophils Percent Auto 43.8 % (45.5-73.1); Platelet Count Result 182 k/mm3 (150-375); Red Blood Count 4.29 M/mm3 (4.6-6.20); Red Cell Distribution Width 13.3 % (11.5-14.5); White Blood Count 4.3 K/mm3 (4.5-10.0)
[2021-03-14 14:59] LABS: Add Urine Microscopic? NO; Appearance Urine Clear (Clear); Bilirubin Urine Negative (Negative); Blood Urine Negative (Negative); Color Urine Colorless (Yellow); Glucose Urine UA Negative (Negative); Ketones Urine Negative (Negative); Leukocyte Esterase Ur Negative LEU/UL (Negative); Nitrate Urine Negative (Negative); Protein Urine Negative (Negative); Urobilinogen Urine Negative mg/dL (<2.0)
[2021-03-14 15:00] LABS: Specific Grav Ur 1.002 (1.001-1.035)
[2021-03-14 15:09] LABS: Alanine Aminotransferase 26 U/L (4-50); Albumin Level 4.4 g/dL (3.5-5.1); Alkaline Phosphatase 81 U/L (38-126); Anion Gap 9 mmol/L (8-16); Aspartate Amino Transferase 59 U/L (17-59); Bilirubin,Total 0.5 mg/dL (0.2-1.3); Blood Urea Nitrogen 11 mg/dL (9-20); Calcium 8.9 mg/dL (8.4-10.2); Carbon Dioxide 25 mmol/L (22-30); Chloride 107 mmol/L (98-107); Estimated CRCL calculation 87 ml/min; Estimated Glomerular Filt Rate > 60; Glucose 87 mg/dL (65-110); Potassium 4.2 mmol/L (3.4-5.0); Sodium 141 mmol/L (137-145)
[2021-03-14 16:31] VITALS: BP 128/98; PULSE 72; RESP 18; TEMP 36.3; O2SAT 99
--- NOTE | 2021-03-14 17:32 | PC.NURSE ---
Pt daughter approached intake desk and requested to know how many people were ahead of pt. This RN informed daughter there are two names ahead as long as nothing more critical or EMS unaccounted for come in. Pt daughter states No way are we waiting then. We've waited long enough. He is sick of waiting and his hands are going numb. We are gonna go to another hospital. The daughter then yells to father Come on dad, we are leaving, they still dont have a room for you. Pt then exits ER while shouting If I am tomorrow, Its your fault. Thanks a lot for nothing. Pt proceeds to walk out w/ daughter, steady gait and in no obvious distress.
== END 2021-03-15 04:10 | disposition left against medical advice (07) ==
PROVIDERS: Emergency Provider Emergency Medicine
DX: R41.82 Altered mental status, unspecified (principal); Z53.21 Procedure and treatment not carried out due to patient leaving prior to being seen by health care provider
CPT/HCPCS: 36415; 80053; 81003; 85025; 93005; 99199